=== PATIENT | female | born 1995 | race American Indian/Alaskan Native ===

== ENCOUNTER 2019-10-13 15:37 | Outpatient (CLI) | payer MEDICAID ==
[2019-10-13 16:01] VITALS: BP 116/76
[2019-10-13 16:24] LABS: Bacteria,Urine 1+ /HPF (Negative); Bilirubin,Urine NEG (Negative); Blood,Urine NEG (Negative); Color,Urine Yellow (Yellow); Mucus,Urine FEW /HPF; Protein,Urine <15 mg/dL mg/dL (Negative); Urobilinogen,Urine < 2.0 mg/dL (<2.0)
[2019-10-13 16:28] LABS: Amphetamine Screen,Urine PRESUMPTIVE NEGATIVE; Benzodiazepines Screen,Urine PRESUMPTIVE NEGATIVE; Cocaine Screen,Urine PRESUMPTIVE NEGATIVE; Methadone Screen,Urine PRESUMPTIVE NEGATIVE; Opiate Screen,Urine PRESUMPTIVE NEGATIVE
[2019-10-13 16:41] LABS: Cannabinoid Screen,Urine PRESUMPTIVE POSITIVE
[2019-10-13] MEDS ORDERED: LACTATED RINGERS 1,000 ML IV SCH (17:00)
== END 2019-10-13 17:06 | disposition home or self-care (01) ==
LOC: TRG 15:37
PROVIDERS: ATTEND Obstetrics & Gynecology
DX: O36.8130 Decreased fetal movements, third trimester, not applicable or unspecified (principal); Z3A.30 30 weeks gestation of pregnancy
CPT/HCPCS: 59025; 80307; 81001; 87076; 87086; 87186

== ENCOUNTER 2019-12-07 11:49 | Outpatient (CLI) | payer MEDICAID ==
[2019-12-07 12:13] VITALS: BP 113/69
== END 2019-12-07 13:22 | disposition home or self-care (01) ==
LOC: TRG 11:49
PROVIDERS: ATTEND Obstetrics & Gynecology
DX: O47.1 False labor at or after 37 completed weeks of gestation (principal); Z3A.37 37 weeks gestation of pregnancy
CPT/HCPCS: 59025